=== PATIENT | female | born 1945 | race Caucasian/White ===

== ENCOUNTER → 2024-01-03 13:20 | Outpatient (REF) | payer OTHER, SELFPAY ==
[2024-01-05 20:15] LABS: ANA, IgG Reflex to HEp-2 None Detected (None Detected)
== END ==
LOC: HWLAB 13:20
PROVIDERS: ATTENDING PHYSICIAN Specialist; FAMILY PHYSICIAN Internal Medicine
DX: L28.0 Lichen simplex chronicus (principal)
CPT/HCPCS: 36415; 86038

== ENCOUNTER → 2024-02-07 11:40 | Outpatient (REF) | payer OTHER, SELFPAY | LOC: HWRAD 11:40 | PROVIDERS: ATTENDING PHYSICIAN Nurse Practitioner Family; FAMILY PHYSICIAN Internal Medicine | DX: M54.50 Low back pain, unspecified (principal) | CPT/HCPCS: 72110 ==

== ENCOUNTER → 2024-05-21 07:13 | Outpatient (REF) | payer OTHER, SELFPAY ==
[2024-05-21 09:28] LABS: % Basophils 0.4 % (0-2); % Eosinophils 2.2 % (0-6); % Immature Granulocytes 0.2 % (0-0.5); % Lymphocytes 25.3 % (20.5-51.1); % Monocytes 11.4 % (1.7-9.3); % Neutrophils 60.5 % (42.2-75.2); Absolute Eosinophils 0.1 10^3/uL (0-0.7); Absolute Lymphocytes 1.4 10^3/uL (1.2-3.4); Absolute Monocytes 0.6 10^3/uL (0.1-0.6); Absolute Neutrophils 3.4 10^3/uL (1.4-6.5); Hematocrit 39.3 % (37.0-47.0); Hemoglobin 13.4 g/dL (12.0-16.0); Mean Corp Hgb Conc. 34.1 g/dL (33.0-37.0); Mean Corpuscular Hgb 32.4 pg (27.0-31.0); Mean Corpuscular Volume 95.2 fL (81.0-99.0); Mean Platelet Volume 9.9 fL (7.4-10.4); Nucleated Red Blood Cells % 0 %; Platelet Count 210 10^3/uL (130-400); Red Blood Cell Count 4.13 10^6/uL (4.20-5.40); Red Cell Dist. Width 12.5 % (11.5-14.5); White Blood Cell Count 5.5 10^3/uL (4.8-10.8)
[2024-05-21 09:31] LABS: Urine Albumin Negative (Neg - Trace); Urine Bilirubin Negative (Negative); Urine Character Clear (Clear); Urine Color Yellow; Urine Glucose Negative (Negative); Urine Ketone Negative (Negative); Urine Leukocyte Negative (Negative); Urine Nitrite Negative (Negative); Urine Occult Blood 1+ (Negative); Urine Specific Gravity 1.005 (<1.030); Urine Urobilinogen Negative (Neg - 1+); Urine pH 6.5 (5.0-9.0)
[2024-05-21 10:10] LABS: Urine Squamous Cell 0-2 /LPF (Few); Urine Urothelial Cell 0-2 /LPF (FEW)
[2024-05-21 10:11] LABS: Glycohemoglobin (HgbA1c) 5.3 % (4.0-5.6)
[2024-05-21 10:12] LABS: Urine Bacteria Few (Negative); Urine White Cell 0-2 /HPF (0-5)
[2024-05-21 13:50] LABS: Vitamin D, 25-OH*** 51.1 ng/mL (30-80)
[2024-05-21 14:03] LABS: TSH Reflex To Free T4 1.56 uIU/ml (0.47-4.68)
[2024-05-21 15:15] LABS: ALT (SGPT) 24 U/L (0-35); AST (SGOT) 35 U/L (14-36); Albumin 4.3 g/dl (3.5-5.0); Alkaline Phosphatase 66 U/L (38-126); Blood Urea Nitrogen 20 mg/dl (7-17); Calcium 9.6 mg/dl (8.4-10.2); Carbon Dioxide 27 mmol/L (22-30); Chloride 103 mmol/L (98-107); Glucose 102 mg/dl (70-99); HDL Cholesterol 55 mg/dl; LDL Cholesterol, Calculated 71 mg/dl; Potassium 4.2 mmol/L (3.5-5.1); Sodium 139 mmol/L (135-145); Total Bilirubin 0.5 mg/dl (0.2-1.3); Total Cholesterol 141 mg/dl (50-199); Total Protein 7.4 g/dl (6.3-8.2); Triglyceride 77 mg/dl (10-149); Very Low Density Lipoprotein 15 mg/dl (0-30); eGFR > 60.00
== END ==
LOC: HWRAD 07:13
PROVIDERS: ATTENDING PHYSICIAN Nurse Practitioner Family
DX: Z78.0 Asymptomatic menopausal state (principal); Z12.31 Encounter for screening mammogram for malignant neoplasm of breast; Z00.00 Encounter for general adult medical examination without abnormal findings; E78.2 Mixed hyperlipidemia; I10 Essential (primary) hypertension; M19.041 Primary osteoarthritis, right hand; M19.042 Primary osteoarthritis, left hand; I34.0 Nonrheumatic mitral (valve) insufficiency; J32.0 Chronic maxillary sinusitis; R09.82 Postnasal drip; K21.9 Gastro-esophageal reflux disease without esophagitis; Z86.19 Personal history of other infectious and parasitic diseases; Z85.43 Personal history of malignant neoplasm of ovary; M54.50 Low back pain, unspecified; Z01.89 Encounter for other specified special examinations
CPT/HCPCS: 36415; 77063; 77067; 77080; 80053; 80061; 81003; 81015; 82306; 83036; 84443; 85025

== ENCOUNTER → 2024-07-31 10:16 | Outpatient (REF) | payer OTHER, SELFPAY | LOC: HWRCS 10:16 | PROVIDERS: ATTENDING PHYSICIAN Internal Medicine Cardiovascular Disease; FAMILY PHYSICIAN Internal Medicine | DX: I34.0 Nonrheumatic mitral (valve) insufficiency (principal) | CPT/HCPCS: 93306 ==

== ENCOUNTER → 2024-10-25 11:48 | Outpatient (REF) | payer OTHER, SELFPAY ==
[2024-10-25 16:22] LABS: ALT (SGPT) 25 U/L (0-35); AST (SGOT) 35 U/L (14-36); Albumin 4.4 g/dl (3.5-5.0); Alkaline Phosphatase 65 U/L (38-126); Blood Urea Nitrogen 26 mg/dl (7-17); Calcium 9.5 mg/dl (8.4-10.2); Carbon Dioxide 31 mmol/L (22-30); Chloride 98 mmol/L (98-107); Glucose 94 mg/dl (70-99); Potassium 4.3 mmol/L (3.5-5.1); Sodium 137 mmol/L (135-145); Total Bilirubin 0.6 mg/dl (0.2-1.3); Total Protein 7.7 g/dl (6.3-8.2); eGFR > 60.00
== END ==
LOC: HWLAB 11:48
PROVIDERS: ATTENDING PHYSICIAN Internal Medicine
DX: I10 Essential (primary) hypertension (principal); E78.2 Mixed hyperlipidemia
CPT/HCPCS: 36415; 80053

== ENCOUNTER → 2024-11-05 14:05 | Outpatient (REF) | payer OTHER, SELFPAY | LOC: RAD 14:05 | PROVIDERS: ATTENDING PHYSICIAN Internal Medicine | DX: K58.0 Irritable bowel syndrome with diarrhea (principal) | CPT/HCPCS: 74177; Q9967 ==

== ENCOUNTER → 2025-06-20 06:57 | Outpatient (REF) | payer OTHER, SELFPAY | LOC: HWWDC 06:57 | PROVIDERS: ATTENDING PHYSICIAN Internal Medicine | DX: Z12.31 Encounter for screening mammogram for malignant neoplasm of breast (principal) | CPT/HCPCS: 77063; 77067 ==

== ENCOUNTER → 2025-07-24 09:17 | Outpatient (REF) | payer OTHER, SELFPAY | LOC: HWRCS 09:17 | PROVIDERS: ATTENDING PHYSICIAN Internal Medicine Cardiovascular Disease; FAMILY PHYSICIAN Internal Medicine | DX: I34.0 Nonrheumatic mitral (valve) insufficiency (principal) | CPT/HCPCS: 93306 ==

== ENCOUNTER → 2025-08-13 07:58 | Outpatient (REF) | payer OTHER, SELFPAY ==
[2025-08-13 12:14] LABS: Urine Character Clear (Clear)
[2025-08-13 12:14] LABS: Hematocrit 39.8 % (37.0-47.0); Hemoglobin 13.3 g/dL (12.0-16.0); Mean Corp Hgb Conc. 33.4 g/dL (33.0-37.0); Mean Corpuscular Volume 96.6 fL (81.0-99.0); Nucleated Red Blood Cells % 0 %; Platelet Count 199 10^3/uL (130-400); Red Cell Dist. Width 12.6 % (11.5-14.5)
[2025-08-13 12:53] LABS: ALT (SGPT) 30 U/L (0-35); AST (SGOT) 37 U/L (14-36); Albumin 4.4 g/dl (3.5-5.0); Alkaline Phosphatase 54 U/L (38-126); Blood Urea Nitrogen 16 mg/dl (7-17); Calcium 9.4 mg/dl (8.4-10.2); Carbon Dioxide 31 mmol/L (22-30); Chloride 103 mmol/L (98-107); Glucose 105 mg/dl (70-99); HDL Cholesterol 66 mg/dl; LDL Cholesterol, Calculated 77 mg/dl; Potassium 4.2 mmol/L (3.5-5.1); Sodium 139 mmol/L (135-145); Total Protein 7.9 g/dl (6.3-8.2); Very Low Density Lipoprotein 12 mg/dl (0-30); eGFR > 60.00
[2025-08-13 13:21] LABS: TSH 1.79 uIU/ml (0.47-4.68)
[2025-08-13 13:56] LABS: Folate > 20.0 ng/ml (2.76-20); Vitamin B12 787 pg/ml (239-931)
== END ==
LOC: HWLAB 07:58
PROVIDERS: ATTENDING PHYSICIAN Internal Medicine
DX: I10 Essential (primary) hypertension (principal); E78.2 Mixed hyperlipidemia; K21.9 Gastro-esophageal reflux disease without esophagitis; K58.0 Irritable bowel syndrome with diarrhea; R47.89 Other speech disturbances
CPT/HCPCS: 36415; 80053; 80061; 81003; 81015; 82607; 82746; 84443; 85025

== ENCOUNTER 2025-08-16 14:16 | Emergency (ER) | payer OTHER, SELFPAY ==
[2025-08-16 14:19] VITALS: BP 167/89
--- NOTE | 2025-08-16 16:15 | ED.GENMED ---
History of Present Illness
General
Chief Complaint: Nose Bleed
Time Seen by Provider: 08/16/25 16:02
Nursing documentation reviewed up to this point in time: agreed with
History of Present Illness
History of Present Illness:
79-year-old female presents to the ER for evaluation of bleeding from her left nostril which has been present for the last 2 hours. Patient states that she blew her nose and abruptly had bleeding from her left nostril which she was unable to
control at home with direct pressure. No prior history of similar bleeding. She is not on any antiplatelet medication. She recently was started on Astelin nose spray for sinus congestion diagnosed as being related to deviated septum. She
increased the frequency of using this no spray to twice daily. She does not use any other nose sprays. She denies any facial pain. No fever. No syncope or lightheadedness
Review of Systems
Review of Systems
Allergies reviewed?: Yes
Phy Exam
Physical Exam
Physical Exam:
Patient is awake, alert, appears no acute distress, wearing glasses, conjunctiva pink, mucous membranes moist, right nostril with dried blood present, left nostril with dried blood present and area of recent bleeding seen along the anterior nasal
septum, no active bleeding, GCS is 15
Course
Orders/Labs/Results
Orders:
Orders
08/16/25 16:14
Phenylephrine 0.5% Regular Spr [Yadiel-Synephrine 0.5% Nasal [place]] See Dose Instructions NASAL NOW STA
Vital Signs
Initial and Last Documented VS:
Initial Vital Signs
Temp Pulse Resp BP Pulse Ox
98.5 F 78 16 167/89 98
08/16/25 14:19 08/16/25 14:19 08/16/25 14:19 08/16/25 14:19 08/16/25 14:19
Last Documented Vital Signs
Temp Pulse Resp BP Pulse Ox
98.5 F 56 18 155/72 95
08/16/25 14:19 08/16/25 17:20 08/16/25 17:20 08/16/25 17:20 08/16/25 17:20
Procedures
Nosebleed
Drug treatment: Lidocaine and other (phenylephrine)
Treatment: local pressure applied and Silver nitrate cautery
Post treatment bleeding: none- good control and continue to observe
MDM/Problems Addressed
Differential Diagnosis Includes:
Differential diagnosis to consider but not limited to nasal dryness, nasal trauma along with other etiologies considered
Chronic conditions affecting care:
Advanced age, hypertension
*Pulse Oximetry
SaO2: 98
Oxygen Mode of Delivery: Room air
Patient hypoxic: no
*Critical Care Note
Total Time (30-74mins, 75-104mins- exclusive of procedures): Not Applicable
Update Note
Update Note:
Patient tolerated packing and cautery well. On reexamination, she is no longer having any bleeding. I discussed with patient and daughter present at bedside full discharge instructions including strict return precautions. They feel comfortable
with plan and will follow-up with ENT as discussed. They have no questions at the current time.
ED Attending Note
-
Portions of this chart may have been created with voice recognition software.� Occasional wrong word or��sound alike� substitutions may have occurred due to the inherent limitations of voice recognition software.
Discharge Plan
Departure
Patient Disposition: Home (Routine Discharge)
Date of Disposition: 08/16/25
Time of Disposition: 17:23
Patient with high blood pressure during this ER visit?: Yes
Discharge Problem:
Acute anterior epistaxis
Instructions: Nosebleeds - ED (DC), BLOOD PRESSURE
Prescriptions:
No Action
cetirizine 10 MG tablet
10 mg PO PRN PRN (Reason: congestion)
atorvastatin 10 MG tablet
10 mg PO DAILY
metoprolol succinate [Toprol XL] 25 MG tablet extended release 24 hr
25 mg PO DAILY
azelastine [Astepro] 137 MCG/0.137 ML aerosol,spray
1 spray intranasal BID
Rhyinocort Nasal [place]
1 spray intranasal PRN PRN (Reason: congestion)
mupirocin 1 APPLIC ointment
1 applic intranasal BID Qty: 1 0RF
sennosides [senna] 1 TABLET tablet
2 tab PO BID 0RF
aspirin 325 MG tablet
325 mg PO DAILY 0RF
tramadol 50 MG tablet
50 mg PO Q6HPRN PRN (Reason: moderate-severe pain) Qty: 30 0RF
Rx Instructions:
dx TKA
ongoing therapy
famotidine 20 MG tablet
20 mg PO HS Qty: 1 0RF
magnesium hydroxide 30 ML suspension
30 ml PO DAILYPRN PRN (Reason: constipation) 0RF
docusate sodium 100 MG capsule
100 mg PO BID 0RF
prochlorperazine maleate 5 MG tablet
5 mg PO Q6HPRN PRN (Reason: n/v) Qty: 20 0RF
Rx Instructions:
take 1/2 hour before Ultram if recurrent nausea
acetaminophen [Tylenol Extra Strength] 500 MG tablet
1,000 mg PO QID Qty: 0 0RF
Rx Instructions:
standing order
ibuprofen [Advil] 200 MG tablet
400 mg PO BID Qty: 0 0RF
Rx Instructions:
take with food
do not take within 2 hours of ASA
Referrals:
Leroy Miranda DO [Family Provider, Internal Medicine]
Activity Restrictions/Additional Instructions:
Add nasal saline spray or ointment as available [id number] as per package instructions to help with nasal moisture and limit future nosebleeds. Please follow-up with your learning and development administrator for reevaluation and further care.
Please avoid blowing your nose for the next 24 to 48 hours to limit reinjury to the area of bleeding. Return to the ER for any concerns
Interventions
Interventions:
*Risk Screen - Suicide Last Done: 08/16/25 14:19
*General Assessment Last Done: 08/16/25 14:19
*Neglect/Abuse Screening Last Done: 08/16/25 14:19
*ED- Fall Risk Assessment Last Done: 08/16/25 14:19
*ED COVID-19 Vaccine History Last Done: 08/16/25 14:19
*ED Influenza Vaccine History Last Done: 08/16/25 14:19
ED-EENT Assessment Last Done: 08/16/25 16:21
Discharge Date and Time
Print Language: SWAZI
[2025-08-16] MEDS: NEO-SYNEPHRINE 0.5% NASAL SPRAY 1 SPRAY NASAL (16:22)
[2025-08-16 17:20] VITALS: BP 155/72
== END 2025-08-16 17:27 | disposition home or self-care (01) ==
LOC: EMR 14:16
PROVIDERS: EMERGENCY PHYSICIAN Emergency Medicine; FAMILY PHYSICIAN Internal Medicine
DX: R04.0 Epistaxis (principal); I10 Essential (primary) hypertension
CPT/HCPCS: 30901; 99282

== ENCOUNTER → 2025-09-08 14:48 | Outpatient (REF) | payer OTHER, SELFPAY | LOC: PAVMRI 14:48 | PROVIDERS: ATTENDING PHYSICIAN Internal Medicine | DX: R47.89 Other speech disturbances (principal) | CPT/HCPCS: 70551 ==